=== PATIENT | male | born 1975 | race Hispanic/Latino ===

== ENCOUNTER 2017-05-23 16:02 | Emergency (ER) | payer MEDICAID ==
[2017-05-23] MEDS ORDERED: Albuterol-Ipratrop 3 mg / 0.5 (3 ml) UD ONE (16:27)
[2017-05-23] MEDS ORDERED: Albuterol-Ipratrop 3 mg / 0.5 (3 ml) UD INH STA (16:33)
--- NOTE | 2017-05-23 16:54 | RAD ---
HISTORY: cough COMPARISON: None available. TECHNIQUE: Chest PA and lateral FINDINGS: Examination limited by habitus. LUNGS: No focal consolidation. Please note that chest x-ray has limited sensitivity for the detection of pulmonary masses. PLEURA: No significant pleural effusion identified. No definite pneumothorax . CARDIOVASCULAR: The cardiomediastinal silhouette appears within normal limits of size. OSSEOUS STRUCTURES: No acute osseous abnormality identified. VISUALIZED UPPER ABDOMEN: Unremarkable. OTHER FINDINGS: None. IMPRESSION: No focal consolidation, significant pleural effusion, or definite pneumothorax identified.
--- NOTE | 2017-05-23 16:57 | C.PDOC ---
History Of Present Illness 41 yr old male presents to the ER for evaluation of a cough and congestion for the past 3 days. Patient reports green sputum. Patient denies fever, chest pain , SOB, nausea, vomiting, weakness or numbness. Time Seen by Provider: 05/23/17 16:30 Chief Complaint (Nursing): Cough, Cold, Congestion History Per: Patient History/Exam Limitations: no limitations Onset/Duration Of Symptoms: Days (3) Past Medical History Reviewed: Historical Data, Nursing Documentation, Vital Signs Vital Signs: Last Vital Signs Temp 98.1 F 05/23/17 16:16 Pulse 88 05/23/17 16:16 Resp 18 05/23/17 16:16 BP 144/90 05/23/17 16:16 Pulse Ox 95 05/23/17 17:20 - Medical History PMH: Asthma Family History: States: No Known Family Hx - Social History Hx Alcohol Use: No Hx Substance Use: Yes (methadone) - Immunization History Hx Tetanus Toxoid Vaccination: No Hx Influenza Vaccination: No Hx Pneumococcal Vaccination: No Review Of Systems Except As Marked, All Systems Reviewed And Found Negative. Constitutional: Negative for: Fever ENT: Positive for: Other ((+) Congestion ) Cardiovascular: Negative for: Chest Pain Respiratory: Positive for: Cough, Sputum (Green ). Negative for: Shortness of Breath Gastrointestinal: Negative for: Nausea, Vomiting Neurological: Negative for: Weakness, Numbness Physical Exam - Physical Exam Appears: Non-toxic, No Acute Distress Skin: Warm, Dry, No Rash Head: Atraumatic, Normacephalic Oral Mucosa: Moist Chest: Symmetrical, No Tenderness Cardiovascular: Rhythm Regular, No Murmur Respiratory: Rhonchi (Bilateral scattered rhonchi ), No Stridor, Wheezing ( Bilateral scattered wheezing ) Extremity: Normal ROM, No Swelling Neurological/Psych: Oriented x3, Normal Speech, Normal Motor ED Course And Treatment O2 Sat by Pulse Oximetry: 95 (RA ) Pulse Ox Interpretation: Normal - Other Rad CXR X-Ray: Viewed By Me, Read By Radiologist Interpretation: HISTORY: cough. COMPARISON: None available. TECHNIQUE: Chest PA and lateral. FINDINGS: Examination limited by habitus. LUNGS: No focal consolidation. Please note that chest x-ray has limited sensitivity for the detection of pulmonary masses. PLEURA: No significant pleural effusion identified. No definite pneumothorax . CARDIOVASCULAR: The cardiomediastinal silhouette appears within normal limits of size. OSSEOUS STRUCTURES: No acute osseous abnormality identified. VISUALIZED UPPER ABDOMEN: Unremarkable. OTHER FINDINGS: None. IMPRESSION: No focal consolidation, significant pleural effusion, or definite pneumothorax identified. Medical Decision Making Medical Decision Making: PLAN: * CXR * Albuterol INH * Prednisone PO * 520: pt reassessed. wheezing improved. pt speaking full sentences. no increased wob. minimal scattered wheezing. vital stable. cxr neg. pt refuses further observation in er,states "im ready to leave". Disposition - Disposition Disposition: HOME/ ROUTINE Disposition Time: 17:21 Condition: STABLE Additional Instructions: please follow up with your doctor/clinic. return toe r with worsening symptoms or concerns. Prescriptions: Albuterol 0.083% [Albuterol 0.083% Inhal Madonna (2.5 mg/3 ml) UD] 2.5 mg IH Q6 PRN #20 neb PRN Reason: Wheezing Prednisone 50 mg PO DAILY #5 tab Instructions: Acute Bronchitis (ED) Forms: [employer] [facility] ([place]) - Clinical Impression Clinical Impression: Bronchitis - Scribe Statement The provider has reviewed the documentation as recorded by the Cesia Terry Provider Attestation: All medical record entries made by the Cesia were at my direction and personally dictated by me. I have reviewed the chart and agree that the record accurately reflects my personal performance of the history, physical exam, medical decision making, and the department course for this patient. I have also personally directed, reviewed, and agree with the discharge instructions and disposition.
[2017-05-23 17:32] VITALS: BP 112/74; PULSE 89; RESP 20; TEMP 98; O2SAT 94
== END 2017-05-23 17:30 | disposition home or self-care (01) ==
LOC: C.ER 16:02
DX: J40 Bronchitis, not specified as acute or chronic (principal)